=== PATIENT | male | born 1985 | race Caucasian/White ===

== ENCOUNTER 2024-08-02 12:50 | Emergency (ER) | payer OTHER ==
[~2024-08-02] VITALS: Ht 185.4 cm; Wt 76.0 kg
[2024-08-02 12:57] VITALS: BP 113/65; PULSE 82; O2SAT 97
[2024-08-02] MEDS ORDERED: DOXY150C8 PO (15:23)
[2024-08-02 15:33] VITALS: RESP 17; TEMP 98.5
== END 2024-08-02 15:35 | disposition home or self-care (01) ==
LOC: ER 12:51
DX: S21.151A Open bite of right front wall of thorax without penetration into thoracic cavity, initial encounter (principal); W57.XXXA Bitten or stung by nonvenomous insect and other nonvenomous arthropods, initial encounter; Y93.89 Activity, other specified; Y92.89 Other specified places as the place of occurrence of the external cause; Y99.8 Other external cause status
CPT/HCPCS: 99283